=== PATIENT | male | born 1980 | race Caucasian/White ===

== ENCOUNTER 2022-06-28 10:35 | Emergency (ER) | payer BC ==
[~2022-06-28] VITALS: Ht 175.3 cm; Wt 95.3 kg
[2022-06-28 10:56] LABS: HEMATOCRIT 46.6 % (36.7-47.1); MEAN CORPUSCULAR HEMOGLOBIN 30.9 uug (23.8-33.4); MEAN CORPUSCULAR VOLUME 88.5 fL (73.0-96.2); PLATELET COUNT (AUTO) 305 K/uL (152-348)
--- NOTE | 2022-06-28 11:13 | NUR ---
Patient taken to CT.
[2022-06-28 11:41] LABS: CREATININE 1.3 mg/dL (0.6-1.3)
--- NOTE | 2022-06-28 11:44 | NUR ---
Patient not in acute distress at the moment. Denies chest pain or shortness of breath.
[2022-06-28] MEDS ORDERED: AMOX875T2 PO (12:22)
--- NOTE | 2022-06-28 12:32 | NUR ---
Patient discharged to home in stable condition. Written and verbal after care instructions given. Patient verbalizes understanding of instructions. Stressed follow up or return to ER for worsening s/s.
== END 2022-06-28 12:32 | disposition home or self-care (01) ==
LOC: ER 10:35
DX: R42 Dizziness and giddiness (principal); I44.4 Left anterior fascicular block
CPT/HCPCS: 36415; 70450; 83735; 84484; 85025; 93005; A4663